=== PATIENT | female | born 1965 | race African-American/Black ===

== ENCOUNTER 2017-03-21 20:12 | Emergency (ER) | payer OTHER ==
[~2017-03-21] VITALS: Ht 165.1 cm; Wt 81.0 kg
[~2017-03-21 20:12] MED LIST: QUET400T PO
[2017-03-21 20:22] VITALS: BP 133/92
== END 2017-03-22 02:40 | disposition left against medical advice (07) ==
LOC: ER 20:26
DX: Z53.21 Procedure and treatment not carried out due to patient leaving prior to being seen by health care provider (principal)